=== PATIENT | male | born 1975 | race Hispanic/Latino ===

== ENCOUNTER → 2021-09-10 | Outpatient (CLI) | payer OTHER | END | disposition home or self-care (01) | LOC: EEVIPCON 13:11 → RAH 13:11 | PROVIDERS: ATTEND Family Medicine | DX: N50.819 Testicular pain, unspecified (principal) | CPT/HCPCS: 76870 ==

== ENCOUNTER → 2021-09-25 | Outpatient (CLI) | payer OTHER | END | disposition home or self-care (01) | LOC: RAH 11:00 | PROVIDERS: ATTEND Family Medicine | DX: N50.819 Testicular pain, unspecified (principal); R10.9 Unspecified abdominal pain | CPT/HCPCS: 74176 ==